=== PATIENT | female | born 1970 | race Caucasian/White ===

== ENCOUNTER → 2016-06-13 | Outpatient (CLI) | payer BC ==
[~2016-06-13] MED LIST: MULT-506 PO; OMEG10007 PO; OPTIRAY 320 IV PRN
--- NOTE | 2016-06-13 19:39 | DIAGNOSTIC IMAGING REPORT ---
MAXILLOFACIAL CT WITH CONTRAST CT DOSE: 179.92 mGy.cm CLINICAL HISTORY: Cellulitis. Possible abscess. TECHNIQUE: A maxillofacial CT was obtained following intravenous injection of 93 cc Optiray 320 IV. Sagittal and coronal reconstructions were viewed. COMPARISON STUDY: None. FINDINGS: There is moderate infiltration with soft tissue thickening within the subcutaneous tissues overlying the right anterior aspect of the mandible. There is no rim-enhancing fluid collection to suggest an abscess. This extends to the skin and likely reflects a process related to the skin. No odontogenic abscess is identified. Visualized portions of the intracranial contents are unremarkable. The parotid and submandibular glands are normal. This was portions of the airway are patent. The orbits are unremarkable. IMPRESSION: Moderate infiltration of the right anterior inferior aspect of the face, overlying the right body of the mandible extending to the skin. Associated inflammation and soft tissue thickening suggests cellulitis with possible phlegmon. No abscess identified. Electronically signed by: Enrrique Philip M.D. 06/13/2016 7:38 PM Dictated Date/Time: 06/13/2016 7:31 PM
--- NOTE | 2016-06-17 12:35 | CODING QUERY NO DIAGNOSIS ---
: 1970 TREATMENT RENDERED WITHOUT A DIAGNOSIS To promote full compliance with coding requirements relating to patient care, physician participation is requested in all cases of medical insurance coder uncertainty. Please assist us with providing a diagnosis/symptom for the test(s) below: A diagnosis/symptom was not documented on your Order. A valid diagnosis/symptom is required to bill all insurances. Please remember that we are unable to code a diagnosis of rule out, probable, possible, questionable, or suspected. Tests that require a diagnosis: DOS: 06/13/16 * Maxillofacial CT DIAGNOSIS: Provider Signature: Date: Thank you Jo-Ann Verma [facility] Information Management Once completed, please kindly fax back to [phone] For questions please call [phone]
== END | disposition home or self-care (01) ==
LOC: C.CTS 14:47
PROVIDERS: ATTEND Family Medicine
DX: L03.211 Cellulitis of face (principal)